=== PATIENT | female | born 1985 | race Caucasian/White ===

== ENCOUNTER 2018-10-21 20:52 | Emergency (ER) | payer BC ==
[2018-10-21] MEDS ORDERED: NS 0.9% 1000 ML** 1,000 ML IV ONE (21:07)
--- NOTE | 2018-10-21 21:13 | ED ---
HPI Cardiac - HPI Summary HPI Summary: Patient is a 33 y/o F presenting to ED via ambulance with complaints of SOB and chest pain onsetting a few hours ago. She describes chest pain as a fullness. In the room, patient notes that Sx are still somewhat present. She notes deep breaths aggravate chest pain. Slight nausea is also noted. She went to urgent care [facility], it was recommended that the patient come to ED for further evaluation. She had a recent six hour car ride, denies calf pain. Patient has Mirena IUD, states she has not gotten period since four years ago. No CABRERA, dizziness, abdominal pain, cough, vomiting, diarrhea is reported. PMHx of UTI a week ago, at present no dysuria. Patient has completed antibiotics for UTI. No daily medications. No PMHx of blood clots, asthma. Patient is not a smoker. FMHx of DVT, father, uncle with MA. No PSHx. On triage, pain is rated 3/10. Nothing is noted to aggravate/alleviate Sx. Provider in room at 2107, pulse 80, o2 98 on RA, BP 118/86. Home medications and allergies are reviewed. Home Medications Levonorgestrel (Iud) [Mirena IUD] 1 ea VAGINAL ONCE 10/21/18 [History Confirmed 10/21/18] Allergies Allergy/AdvReac Type Severity Reaction Status Date / Time No Known Allergies Allergy Verified 10/21/18 21:00 - History of Current Complaint Chief Complaint: EDShortnessOfBreath Stated Complaint: SOB PER EMS Time Seen by Provider: 10/21/18 21:03 Hx Obtained From: Patient Onset/Duration: Started Hours Ago, Still Present Timing: Constant, Lasting Hours Current Severity: Mild - 3/10 Pain Intensity: 3 Pain Scale Used: 0-10 Numeric - 3/10 Character: Other: - fullness Aggravating Factor(s): Deep Breaths Alleviating Factor(s): Nothing Associated Signs and Symptoms: Positive: Chest Pain, Shortness of Breath, Nausea , Other: - no dysuria. Negative: Headaches, Dizziness, Cough, Productive Cough , Nonproductive Cough, Abdominal Pain, Calf Pain/Swelling, Vomiting - Allergy/Home Medications Allergies/Adverse Reactions: Allergies Allergy/AdvReac Type Severity Reaction Status Date / Time No Known Allergies Allergy Verified 10/21/18 21:00 Home Medications: Home Medications Levonorgestrel (Iud) [Mirena IUD] 1 ea VAGINAL ONCE 10/21/18 [History Confirmed 10/21/18] PMH/Surg Hx/FS Hx/Imm Hx Cardiovascular History: Denies: Hx Deep Vein Thrombosis Respiratory History: Denies: Hx Asthma Sensory History: Denies: Hx Legally Blind, Hx Deafness Opthamlomology History: Denies: Hx Legally Blind EENT History: Denies: Hx Deafness Infectious Disease History: No Infectious Disease History: Denies: Traveled Outside the [place] in Last 30 Days - Family History Known Family History: Positive: Cardiac Disease - MA uncle, Blood Disorder - DVT in father - Social History Alcohol Use: None Substance Use Type: Reports: None Smoking Status (MU): Never Smoked Tobacco Review of Systems Positive: Chest Pain Positive: Shortness Of Breath. Negative: Cough Positive: Nausea. Negative: Abdominal Pain, Vomiting, Diarrhea Negative: dysuria Musculoskeletal: Other - NEGATIVE - CALF PAIN Neurological: Other - NEGATIVE - DIZZINESS Negative: Headache All Other Systems Reviewed And Are Negative: Yes Physical Exam - Summary Physical Exam Summary: Appearance: Well-appearing, mild pain distress, well-nourished; chest pain is not reproducible. Skin: Warm, color reflects adequate perfusion, dry Head: Normal Head/Face inspection, atraumatic Eyes: Conjunctiva clear ENT: Normal inspection Neck: Supple, no nodes, no JVD Respiratory: Lungs clear, normal breath sounds, no respiratory distress Cardio: RRR, No murmur, pulses normal, brisk capillary refill Abdomen: Soft, nontender Bowel sounds: Present Musculoskeletal: Strength Intact/ROM intact, no calf tenderness, no edema. Psychological: Normal Neuro: Alert, muscle tone normal, no focal deficit Triage Information Reviewed: Yes Vital Signs On Initial Exam: Initial Vitals Temp Pulse Resp BP Pulse Ox 100.3 F 82 20 118/86 100 10/21/18 20:57 10/21/18 20:57 10/21/18 20:57 10/21/18 20:57 10/21/18 20:57 Vital Signs Reviewed: Yes Diagnostics - Vital Signs Vital Signs Temp Pulse Resp BP Pulse Ox 10/21/18 20:57 100.3 F 82 20 118/86 100 - Laboratory Result Diagrams: 10/21/18 21:32 10/21/18 21:32 Lab Statement: Any lab studies that have been ordered have been reviewed, and results considered in the medical decision making process. - Radiology Chest x-ray Radiology Interpretation Completed By: ED Physician Summary of Radiographic Findings: No acute disease, pending official report. - EKG 2142 Cardiac Rate: NL - rate of 80 BPM EKG Rhythm: Sinus Rhythm ST Segment: Non-Specific Ectopy: None Summary of EKG Findings: EKG showed sinus rhythm with rate of 80 BPM, normal AVIVCT, normal QTc, normal axis, no acute changes. Re-Evaluation - Re-Evaluation First Eval Re-Evaluation Time: 22:14 Comment: Results of labs and tests were discussed with patient. At present, chest discomfort is rated 3/10. Patient to try inhaler, will be given ibuprofen. Patient to be discharged to home and follow up with PCP, patient is agreeable with this. Disposition - Course Course Of Treatment: Patient is a 33 y/o F presenting to ED via ambulance with complaints of SOB and chest pain onsetting a few hours ago. She describes chest pain as a fullness. In the room, patient notes that Sx are still somewhat present. She notes deep breaths aggravate chest pain. Slight nausea is also noted. She went to urgent care [facility], it was recommended that the patient come to ED for further evaluation. She had a recent six hour car ride, denies calf pain. Patient has Mirena IUD, states she has not gotten period since four years ago. No CABRERA, dizziness, abdominal pain, cough, vomiting, diarrhea is reported. PMHx of UTI a week ago, at present no dysuria. Patient has completed antibiotics for UTI. No daily medications. No PMHx of blood clots, asthma. Patient is not a smoker. FMHx of DVT, father, uncle with MA. No PSHx. On physical exam, mild pain distress is noted, chest pain is not reproducible. EKG showed sinus rhythm with rate of 80 BPM, normal AVIVCT, normal QTc, normal axis, no acute changes. CXR showed NAD. Labs showed WBC 12.8, MCH 32, absolute neuts 7.9. D-dimer < 200, trop 0.01, CK MB 1.8, Beta HCG < 0.6, lactic acid 0.8. Influenza A, B were negative. During ED course, patient received fluids. Results of labs and tests were discussed with patient. At present, chest discomfort is rated 3/10. Patient will be given ibuprofen 600 mg and ventolin inhaler 1 puff. Patient to be discharged to home and follow up with PCP , patient is agreeable with this. - Diagnoses Provider Diagnoses: Chest pain, Dyspnea Discharge - Sign-Out/Discharge Documenting (check all that apply): Patient Departure - discharge Patient Received Moderate/Deep Sedation with Procedure: No - Discharge Plan Condition: Stable Disposition: HOME Patient Education Materials: Chest Pain (ED), Dyspnea (ED) Referrals: [facility] [Outside] - 1 Day (if needed ) No Primary Care Phys,NOPCP [Primary Care Provider] - Additional Instructions: Your lab tests did not show any significant abnormalities. Your flu swab was negative. Your chest xray, unofficial reading by Dr. Anna shows no acute disease. We will contact you if you need any change in therapy based on the official reading. Your d-dimer was normal, so we do not think you have a pulmonary embolus (blood clot) in your lung. Dr. Anna gave you ibuprofen 600mg and an albuterol inhaler that you may try for symptoms of shortness of breath. Return to the ER if any new or worsening symptoms. - Attestation Statements Document Initiated by Scribe: Yes Documenting Scribe: QUANG SEO Provider For Whom Selwyn is Documenting (Include Credential): RAMSES ANNA MD Scribe Attestation: QUANG Mills, scribed for RAMSES ANNA MD on 10/21/18 at 2246. Status of Scribe Document: Ready
[2018-10-21 21:43] LABS: ABS Basophils 0.1 10^3/ul (0-0.2); ABS Eosinophils 0.2 10^3/ul (0-0.6); ABS Monocytes 0.6 10^3/ul (0-0.8); ABS Neutrophils 7.9 10^3/ul (1.5-7.7); ABS Nucleated RBC 0 10^3/ul; Eosinophil % 1.6 %; Hematocrit 41 % (33-41); Lymphocyte % 31.2 %; Mean Corpuscular HGB Conc 34 g/dL (31-36); Mean Corpuscular Hemoglobin 32 pg (27-31); Mean Corpuscular Volume 94 fL (80-97); Mean Platelet Volume 8.5 fL (7.4-10.4); Nucleated Red Blood Cells % 0.1; Platelet Count 329 10^3/uL (150-450); Red Blood Count 4.38 10^6 /uL (3.70-4.87); Red Cell Distribution Width 12 % (10.5-15); White Blood Count 12.8 10^3/uL (3.5-10.8)
[2018-10-21 21:55] LABS: INR 0.96 (0.77-1.02)
[2018-10-21 22:01] LABS: ALT 15 U/L (7-52); AST 17 U/L (13-39); Albumin 4.5 g/dL (3.2-5.2); Albumin/Globulin Ratio 1.6 (1-3); Alkaline Phosphatase 69 U/L (34-104); Anion Gap 7 mmol/L (2-11); BUN/Creatinine Ratio 14.3 (8-20); Blood Urea Nitrogen 10 mg/dL (6-24); CO2 Carbon Dioxide 25 mmol/L (22-32); Calcium 9.4 mg/dL (8.6-10.3); Chloride 106 mmol/L (101-111); Creatine Kinase 129 U/L (10-223); EGFR African American 117.3 (>60); Globulin 2.8 g/dL (2-4); Glucose 84 mg/dL (70-100); Sodium 138 mmol/L (135-145); Total Protein 7.3 g/dL (6.4-8.9)
[2018-10-21 22:03] LABS: Influenza A Molecular NEGATIVE (Negative); Influenza B Molecular NEGATIVE (Negative)
[2018-10-21 22:04] LABS: Troponin I 0.01 ng/mL (<0.04)
[2018-10-21 22:06] LABS: CKMB ng/mL 1.8 ng/mL (0.6-6.3)
[2018-10-21 22:08] LABS: HCG Pregnancy < 0.60 mIU/mL
[2018-10-21] MEDS ORDERED: Albuterol HFA INHALER* 8 gm MDI INH ONE ×2 (22:24→22:27)
[2018-10-21] MEDS ORDERED: Ibuprofen TAB* 600 MG PO ONE (22:24)
[2018-10-21 22:46] VITALS: BP 119/81
== END 2018-10-21 22:45 | disposition home or self-care (01) ==
LOC: ED 20:52
DX: R06.00 Dyspnea, unspecified (principal); R07.9 Chest pain, unspecified; R11.0 Nausea
CPT/HCPCS: 36415; 71046; 80053; 82550; 82553; 83605; 84484; 84702; 85025; 85379; 85610; 85730; 86140; 87040; 93005; 99284; A9270-GY